=== PATIENT | female | born 1985 | race Caucasian/White ===

== ENCOUNTER 2019-08-24 15:53 | Outpatient (CLI) | payer OTHER, SELFPAY ==
--- NOTE | ~2019-08-24 | XR_ITS ---
XR hand RT min 3V DATE: 08/24/2019 16:18 INDICATION: Pain and swelling between the first and second metacarpal bones TECHNIQUE: 3 views COMPARISON: None FINDINGS: No fracture or dislocation, periosteal reaction or bone destruction, erosive change or korina drocalcinosis. Joint spaces are well preserved. IMPRESSION: Negative Reviewed, dictated and finalized at location A. IMPRESSION: Negative
== END 2019-08-24 15:54 | disposition home or self-care (01) ==
PROVIDERS: Visit Provider Plastic Surgery
DX: M19.041 Primary osteoarthritis, right hand (principal)
CPT/HCPCS: 73130

== ENCOUNTER 2022-04-29 00:58 | Day surgery (SDC) | payer OTHER, SELFPAY ==
[2022-04-16 16:03] VITALS: BMI 44.1
--- NOTE | 2022-04-16 16:22 | PC.NURSE ---
Report to the Outpatient Waiting Room, entrance under the green pavilion located off [facility], at time 0730 on date _04/29/22 Planned Procedure Time: _0930. Time changes happen often and if your time is changed the preop area will call you the afternoon before. - You and your visitor will be asked to self-screen and do not enter if you have any COVID symptoms. - Only one visitor is requested with a max of two and NO children visitors are allowed at this time. - The patient visitor may be requested to leave or wait in car when not with patient due to distancing restrictions. - A mask is optional within the hospital at this time. Patients may have clear liquids (water, carbonated beverages, clear teas, apple juice) until 3 hours prior to surgery with a maximum of 20 ounces. - No food from midnight until time of surgery - Infants may have breast milk until 4 hours before surgery, formula 6 hours prior to surgery. - Children will be allowed to drink immediately following surgery. If applicable, please bring a bottle or sippy cup to assist with drinking. Juice, water, soda, and popsicles are readily available. For infants on formula, please bring formula the day of surgery. Pacifiers are allowed. Take the following medications with a SIP of water the morning of surgery: fluoxetine___ DO NOT STOP ANY OF YOUR OTHER PRESCRIPTION MEDICATIONS PRIOR TO SURGERY ?EXCEPT THE FOLLOWING Medications to discontinue per physician __n/a Date to take last dose Please no make-up, nail albanian, hairspray, perfume, deodorant, or body powder the day of surgery. No jewelry (including any body piercings) or valuables the day of surgery, leave them at home. Please take a shower or bath the night before, or the morning of, surgery with an antibacterial soap. Wear comfortable, loose fitting clothing. Children are encouraged to wear pajamas. - Jewelry must be removed prior to entering the operating room. Rings and piercings that are not removed may be cut off. - The hospital will not accept responsibility for valuables. - Please leave all valuables, including medications, at home the day of surgery. If you are going home after surgery, a licensed cross country truck driver must drive you home. - NO public transportation without another adult if you receive anesthesia. - We recommend that an adult stay with you for 24 hours following discharge. - We also recommend that you do not drive, make important decision, drink alcoholic beverages, or take any drugs that were not prescribed by your health care provider for at least 24 hours after your discharge time. For Pediatric surgeries, we recommend two adults accompany the child home. Follow any additional instructions given to you from your surgeon. If you or anyone in your household have experienced Covid symptoms in the past week, please notify your surgeon or the nurse liaison at the phone number below for possible testing. Telephone instructions given to Akash Kimble and asked if any additional questions and then verbalized understanding. Patient advised to call surgeon office or pre surgery nurse liaison [phone] if any additional questions.
[2022-04-29] VITALS (10 sets, daily range): BP systolic 112–146; BP diastolic 56–94; PULSE 58–72; RESP 12–16; TEMP 36.3–36.6; O2SAT 92–100
[2022-04-29] MEDS: GABAPENTIN 300 MG CAPSULE PO (08:15)
[2022-04-29] MEDS: ACETAMINOPHEN 500 MG TABLET 1000 MG PO (08:15)
--- NOTE | 2022-04-29 08:40 | PM.IMHP ---
H&P: HPI History of Present Illness Date/Time: 04/29/22 08:40 Chief Complaint: I'm here to have my tubes removed Narrative: Juliet presents for diagnostic laparoscopy, bilateral salpingectomy Review of Systems Review of Systems: All systems reviewed & are unremarkable except as noted in HPI and below PMFSH Social History Social History Smoking packs per day: 1 Smoking cigarettes per day: 20.0 Years smoked: 10 Smoking pack-years: 10.00 Smoking status: Former smoker Tobacco type: cigarettes Alcohol intake: never Substance use: never Living arrangements: with family Spiritual care concerns: No Meds Home Medications and Allergies Home Medications Medication Instructions Recorded Confirmed Type fluoxetine 20 mg capsule 20 mg PO DAILY 04/16/22 04/16/22 History omeprazole 40 mg capsule,delayed 40 mg PO BID 04/16/22 04/16/22 History release Allergies Allergy/AdvReac Type Severity Reaction Status Date / Time No Known Allergies Allergy Verified 04/29/22 08:31 Vital Signs Vital Signs - 24 hr 04/29/22 08:19 Temperature 36.6 C Pulse Rate 72 Respiratory Rate 14 Blood Pressure 144/85 H Pulse Oximetry 98 Oxygen Delivery Room Air Exam Const: General: comfortable and no acute distress Eyes: General: appearance normal, both eyes and all related structures Sclera: sclerae normal Neck: Thyroid: thyroid normal Resp: Effort & Inspection: normal respiratory effort Auscultation: clear to auscultation bilaterally Cardio: Rate: regular rate Rhythm: regular rhythm GI: GI Palp: Yes Soft to palpation Auscultation: normal bowel sounds Skin: General skin exam: normal color and no rashes or lesions noted Lesions: lesion noted Psych: Mental Status: mental status grossly normal Affect: normal affect Assessment and Plan Assessment and plan (1) Sterilization: Code(s): Z30.2 - Encounter for sterilization Status: Acute Plan Diagnostic laparoscopy, bilateral salpingectomy
--- NOTE | 2022-04-29 08:42 | WPDHPUPDATE1 ---
History and Physical Update Update Date/Time: 04/29/22 08:42 History and Physical has been reviewed, including an updated exam of the patient. There are NO changes in the patient's condition. Risks, benefits, and alternatives have been discussed and questions answered. Patient agrees to proceed with procedure.
--- NOTE | 2022-04-29 08:51 | P.PNAN_ITS ---
Anes - Initial Pre Proc Eval Procedure: Operation Date: 04/29/22 09:30 Proposed Procedures p Diagnostic Laparoscopy with Bilateral Salpingectomy - Kaitlyn Garcia DO Date/Time: 04/29/22 08:51 Surgeon: Kaitlyn Garcia DO Pre Op Diagnosis: Desire Surgical Sterility Patient Data Age: 37 Gender: F Height: 1.7 m Weight: 97.8 kg Last Vital Signs Temp 36.6 C 04/29/22 08:19 Pulse 72 04/29/22 08:19 Resp 14 04/29/22 08:19 BP 144/85 H 04/29/22 08:19 Pulse Ox 98 04/29/22 08:19 O2 Del Method Room Air 04/29/22 08:19 Allergies Allergy/AdvReac Type Severity Reaction Status Date / Time No Known Allergies Allergy Verified 04/29/22 08:31 Home Medications Medication Instructions Recorded Confirmed Type fluoxetine 20 mg capsule 20 mg PO DAILY 04/16/22 04/16/22 History omeprazole 40 mg capsule,delayed 40 mg PO BID 04/16/22 04/16/22 History release Patient hx anesthesia problems: none Family hx anesthesia problems: none Results Review: All pre-operative results and documents have been reviewed as part of the pre- operative evaluation. [facility] Past Medical History Medical History (Updated 04/29/22 @ 08:54 by Kaushik Klein DO) Anxiety GERD (gastroesophageal reflux disease) Social History Social History Smoking packs per day: 1 Smoking cigarettes per day: 20.0 Years smoked: 10 Smoking pack-years: 10.00 Smoking status: Former smoker Tobacco type: cigarettes Alcohol intake: never Substance use: never Living arrangements: with family Spiritual care concerns: No Anes - Eval Final PreProcedure Day of Procedure 04/29/22 08:51 Patient weight: obese Heart: regular rate and rhythm Lungs: clear to auscultation Airway: Mallampati scale class II Neurological: alert and oriented Last oral intake: >/= 8 hours ASA classification: II Emergent: no Anesthetic plan: proceed Anesthesia type and monitoring: general ETT and standard monitoring Results Review: All pre-operative results and documents have been reviewed as part of the pre- operative evaluation. Informed Consent: The patient's anesthetic plan and its attendant risks and benefits were discussed with the patient/family/POA. Questions were solicited and answers provided to the satisfaction of the patient/family/POA.
[2022-04-29] MEDS: LACTATED RINGERS 1,000 ML 30 ML IV CONT ×2 (09:13→10:04)
[2022-04-29] MEDS: BUPivacaine HCL 0.25% PF 30 ML VIAL INFILTRATE (09:33)
--- NOTE | 2022-04-29 10:01 | P.OP_ITS ---
Procedure Note - Detailed Date of Procedure 04/29/22 Pre-op Diagnosis Desire Surgical Sterility Post-op Diagnosis Same Procedure Performed Diagnostic laparoscopy, bilateral salpingectomy Surgeon Kaitlyn Garcia DO Alarm Operator Justyna Anesthesia General Indications Desires permanent sterilization Findings Normal-appearing vulva and vaginal canal. Medium-size cervix. Uterus anteverted and sounded to 9 cm. Internally, the bowels liver and pelvic organs were unremarkable. There were a few physiological cysts on the left ovary otherwise the pelvis was unremarkable. Description of Procedure Patient was taken to the operating room where she was placed under general anesthesia. She was prepped and draped in the normal sterile fashion in a dorsal lithotomy position. No preoperative antibiotics were indicated. A time- out was performed. A speculum was placed in the vagina and the cervix was visualized. The anterior lip was grasped with an Allis clamp and a Kroner uterine manipulator was introduced. The speculum was removed, gloves were changed and attention was then turned to the abdomen. The skin above the umbilicus was grasped with 2 penetrating towel clamps and injected with local. A small incision was made and a Veress needle was introduced. Saline water drop test was performed to confirm intraperitoneal placement. CO2 insufflation was started and the abdomen was brought to a filling pressure of 15 mmHg. The Veress needle was then replaced with a 5 mm Optiview trocar which was placed under direct visualization. Survey of the abdomen revealed no evidence of bowel or vascular injury upon initial entry. The patient was then placed in steep Trendelenburg position. Additional port sites in the right left lower quadrants were identified, injected and incised. 5 mm trocars were introduced under direct visualization. The right tube was then elevated with a grasper and was cauterized and transected off using the LigaSure. It was then passed off through the outpatient physical therapist assistant port. The dissection was repeated in identical fashion on the left-hand side. The pedicles were reinspected and found to be hemostatic. There were no lesions or abnormal areas in the pelvis. The instruments were removed and the CO2 gas was allowed to escape. The trocars were removed. The abdominal incisions were closed with subcuticular 4-0 Monocryl. The Kroner uterine manipulator was then removed. The patient was taken to the recovery room in stable condition. All instrument and sponge counts were correct at the conclusion the procedure. Estimated Blood Loss 5 IV Fluids 1,000 Drains No Packing No Pathology Yes Complications No immediate complications Condition Stable Disposition PACU
[2022-04-29] MEDS: fentaNYL CITRATE INJ (*CRX) 100 MCG/2 ML VIAL 25 MCG IV PUSH (10:28)
[2022-04-29] MEDS: ONDANSETRON INJ 4 MG/2 ML VIAL IV PUSH (10:35)
== END 2022-04-29 12:09 | disposition home or self-care (01) ==
PROVIDERS: Visit Provider Obstetrics & Gynecology Gynecologic Oncology
PROC: (CPT 49320; principal; 2022-04-29 09:30)
DX: Z30.2 Encounter for sterilization (principal); K21.9 Gastro-esophageal reflux disease without esophagitis; F41.9 Anxiety disorder, unspecified; Z87.891 Personal history of nicotine dependence; E66.9 Obesity, unspecified; Z68.33 Body mass index [BMI] 33.0-33.9, adult
CPT/HCPCS: 58661; 88302; A9270; J1100; J2250; J2405; J2704; J2710; J3010; J7030; J7120